=== PATIENT | female | born 1975 | race Caucasian/White ===

== ENCOUNTER → 2018-01-01 | Day surgery (SDC) | payer OTHER ==
[~2018-01-01] VITALS: Ht 152.4 cm; Wt 51.3 kg
[~2018-01-01] MED LIST: CEPHALEXIN500 M3 PO; DULCOLAX5 M1 PO; MIRALAX17 G1 PO; MULTIVITAMINS1 EAC9 PO; OXYCODONE-ACET1 EACH PO
--- NOTE | 2018-01-01 18:40 | Operative Report ---
Operative/Inv Procedure Report Surgery Date: 01/01/18 Name of Procedure: interstim battery site revision Pre-Operative Diagnosis: pain at battery site Post-Operative Diagnosis: same Estimated Blood Loss: scant Surgeon/Building Custodian: Lynne Turk MD Anesthesia: local monitored anesthesi Complications: none Condition: stable Operative Indication: battery site pain Operative/Procedure Note Note: 42-year-old female with a history of overactive bladder specifically frequency nocturia was quite bothersome. She underwent an InterStim stage I and 2 sacral neuromodulation with excellent results. However postoperatively several weeks out she continued to experience pain at the battery site. There is no signs of infection. The InterStim was still working with great results. However she was unable to write lie flat or on her left side and she wished to have it revised. She was given the risks benefits and alternatives of doing so and all questions were answered. She signed a consent. Patient was taken to the operating placed on the prone position. She was prepped and draped with ChloraPrep. Ioban drape was placed followed by the standard sterile drapes. 1% lidocaine with epinephrine was infiltrated into the incision site. Incision was made down to the battery site taking care not to injure the lead. The battery was removed and there is no signs of infection. There was no pus or serous fluid. There was a nice capsulated pocket that the battery was within. This was incised with the Metzenbaum scissors and cautery. This was done to break up any potential adhesions or nerve entrapment. Area was copiously irrigated with water. The pocket was dried. The battery was placed back into the newly revised pocket. 3-0 Vicryl interrupted sutures were placed in the interrupted fashion followed by 4-0 Monocryl running subcutaneous layer. Sponge and needle count were correct end of the case. Patient tolerated procedure well. She was transferred to recovery stable condition. Findings: no signs of infection or seroma Discharge Disposition: PACU
== END ==
LOC: STS 02:35
DX: T85.840A Pain due to nervous system prosthetic devices, implants and grafts, initial encounter (principal); R35.0 Frequency of micturition; M54.9 Dorsalgia, unspecified; N32.81 Overactive bladder; R35.1 Nocturia; N39.3 Stress incontinence (female) (male)
CPT/HCPCS: 81025; J0131; J0690; J1885; J2250

== ENCOUNTER → 2018-03-19 | Day surgery (SDC) | payer OTHER ==
[~2018-03-19] VITALS: Ht 152.4 cm; Wt 51.3 kg
--- NOTE | 2018-03-19 14:11 | Operative Report ---
Operative/Inv Procedure Report Surgery Date: 03/19/18 Name of Procedure: interstim device removal Pre-Operative Diagnosis: pain at interstim battery site, unable to tolerate Post-Operative Diagnosis: same Estimated Blood Loss: scant Surgeon/Director Of Business Development: Lynne Turk MD Anesthesia: local monitored anesthesi Complications: none Condition: stable Operative Indication: pain at site of interstim Operative/Procedure Note Note: 43-year-old female with a history of frequency, nocturia was very bothersome. She had tried multiple overactive bladder medications without success. She did opt for InterStim implant and did very well initially. However she never had resolution of InterStim site pain even after the initial postoperative period. She had a previous revision of the battery site and she still persisted with pain. As result she wishes to have the InterStim device removed and will opt for a Botox in the near future. She was given the risks, benefits, and alternatives of doing so. Consent was signed. Patient was taken to the operating room and placed on the operating table in the prone position. Patient was prepped and draped in the standard sterile. 1% lidocaine was infiltrated into the incision site. Incision was made through the old scar site. The InterStim battery was easily removed upon tugging at the lead with the lead fully intact. The wound was irrigated with bacitracin irrigation. Incision was closed with interrupted 3-0 Vicryl in the subcuticular layer followed by 4-0 Monocryl subcutaneous layer. Mastisol, Steri-Strips followed by Telfa and OpSite were applied. Patient tolerated the procedure well. The sponge and needle count were correct at the end of the case. She was transferred to the recovery room stable condition. Findings: interstim device easily removed fully intact Discharge Disposition: Same Day Admissions
== END ==
LOC: STS 01:37
DX: T83.84XA Pain due to genitourinary prosthetic devices, implants and grafts, initial encounter (principal); N94.10 Unspecified dyspareunia; R35.0 Frequency of micturition; R35.1 Nocturia; N32.81 Overactive bladder; N39.3 Stress incontinence (female) (male)
CPT/HCPCS: 36415; 81025; J0690; J2001; J2250